=== PATIENT | male | born 1955 | race Caucasian/White ===

== ENCOUNTER 2016-11-29 08:57 | Day surgery (SDC) | payer BC ==
[~2016-11-29 08:57] MED LIST: ADVICOR 5001 BOTTLE; ASPIRIN325 MG; BAYER ASPIRIN325 MG PO; BYSTOLIC5 M1 PO; ECOTRIN325 M2 PO; ECOTRIN325 MG; FLONASE16 GM NS; LISINOPRIL10 MG; LORTAB 5/5001 EA PO; NIASPAN1000 MG PO; PRALUENT P75 MG/1 ML SC; PREDNISONE; PRINIVIL10 MG PO; PROSTATE HEALT1 EAC2 PO; RANEXA500 M1 PO; SIMCOR 500-21 BOTTLE; SIMCOR 500-21 BOTTLE PO; SIMVASTATIN80 MG PO; WAL-ZYR10 M1 PO; ZYRTEC10 MG PO
[2016-11-29 09:33] LABS: BASO % 0.3 % (0-2); EOS % 3.5 % (0-7); EOSINOPHIL ABSOLUTE COUNT 0.4 tho/cmm (0.0-0.7); HCT-HEMATOCRIT 42.6 % (36.0-53.5); HGB-HEMOGLOBIN 14.4 gm/dl (13.5-17.0); IMMATURE GRANULOCYTES ABSOLUTE 0.16 tho/cmm (0-0.03); IMMATURE GRANULOCYTES PERCENT 1.4 % (0-0.3); LYMPH % 21.6 % (20-45); LYMPH ABSOLUTE COUNT 2.5 tho/cmm (0.8-4.5); MCH (MEAN CORPUSCULAR HGB) 30.4 pg (28.0-32.0); MCHC MEAN CORPUSCULAR HGB CONC 33.8 % (32.0-36.0); MCV (MEAN CELL VOLUME) 89.9 fl (82.0-96.0); MEAN PLATELET VOLUME 9.1 cmc (9.4-12.4); MONO % 7.9 % (0-12); MONOCYTE ABSOLUTE COUNT 0.9 tho/cmm (0.0-1.2); NEUTROPHIL ABSOLUTE COUNT 7.7 tho/cmm (1.6-8.0); NEUTROPHIL-AUTOMATED 7.7 tho/cmm (1.6-8.0); NEUTROPHILS % 65.3 % (40-80); PLATELET COUNT 232 tho/cmm (150-450); RED BLOOD COUNT 4.74 mil/cmm (4.40-5.70); RED CELL DISTRIBUTION WIDTH 15.5 % (12.4-16.4); WHITE BLOOD COUNT 11.7 tho/cmm (4.0-10.0)
[2016-11-29 09:42] LABS: INR 1.1 INR (0.9-1.1)
== END 2016-11-29 14:30 ==
LOC: CTSCAN 08:57 → SHSB 08:58
PROVIDERS: Radiology Diagnostic Radiology
PROC: 0BBF3ZX Excision of Right Lower Lung Lobe, Percutaneous Approach, Diagnostic (ICD-10-PCS; principal; 2016-11-29)
DX: C34.31 Malignant neoplasm of lower lobe, right bronchus or lung (principal); I25.10 Atherosclerotic heart disease of native coronary artery without angina pectoris; E78.00 Pure hypercholesterolemia, unspecified; I10 Essential (primary) hypertension; E29.1 Testicular hypofunction; G47.33 Obstructive sleep apnea (adult) (pediatric); Z79.82 Long term (current) use of aspirin; Z79.899 Other long term (current) drug therapy; Z87.891 Personal history of nicotine dependence; Z90.49 Acquired absence of other specified parts of digestive tract; Z96.651 Presence of right artificial knee joint; Z98.890 Other specified postprocedural states
CPT/HCPCS: J2250; J3010; J7030

== ENCOUNTER 2016-12-14 06:15 | Day surgery (SDC) | payer BC ==
[2016-12-14 07:03] LABS: BASO % 0.4 % (0-2); EOS % 6.2 % (0-7); EOSINOPHIL ABSOLUTE COUNT 0.6 tho/cmm (0.0-0.7); HGB-HEMOGLOBIN 14.2 gm/dl (13.5-17.0); IMMATURE GRANULOCYTES ABSOLUTE 0.08 tho/cmm (0-0.03); IMMATURE GRANULOCYTES PERCENT 0.8 % (0-0.3); LYMPH % 22.2 % (20-45); LYMPH ABSOLUTE COUNT 2.1 tho/cmm (0.8-4.5); MCHC MEAN CORPUSCULAR HGB CONC 33.8 % (32.0-36.0); MCV (MEAN CELL VOLUME) 88.6 fl (82.0-96.0); MEAN PLATELET VOLUME 8.8 cmc (9.4-12.4); MONO % 8.8 % (0-12); MONOCYTE ABSOLUTE COUNT 0.8 tho/cmm (0.0-1.2); NEUTROPHIL ABSOLUTE COUNT 5.9 tho/cmm (1.6-8.0); NEUTROPHIL-AUTOMATED 5.9 tho/cmm (1.6-8.0); NEUTROPHILS % 61.6 % (40-80); PLATELET COUNT 283 tho/cmm (150-450); RED BLOOD COUNT 4.74 mil/cmm (4.40-5.70); RED CELL DISTRIBUTION WIDTH 14.9 % (12.4-16.4); WHITE BLOOD COUNT 9.6 tho/cmm (4.0-10.0)
== END 2016-12-14 10:30 ==
LOC: CTSCAN 06:15 → SHSB 06:19
PROVIDERS: Internal Medicine Pulmonary Disease
PROC: 0QB33ZX Excision of Left Pelvic Bone, Percutaneous Approach, Diagnostic (ICD-10-PCS; principal; 2016-12-14)
DX: C41.4 Malignant neoplasm of pelvic bones, sacrum and coccyx (principal); C34.91 Malignant neoplasm of unspecified part of right bronchus or lung; I25.10 Atherosclerotic heart disease of native coronary artery without angina pectoris; R05 Cough; R49.0 Dysphonia; I10 Essential (primary) hypertension; E78.5 Hyperlipidemia, unspecified; Z79.82 Long term (current) use of aspirin; Z79.899 Other long term (current) drug therapy; Z87.891 Personal history of nicotine dependence; Z96.651 Presence of right artificial knee joint; Z90.49 Acquired absence of other specified parts of digestive tract; Z95.5 Presence of coronary angioplasty implant and graft; Z98.52 Vasectomy status; Z98.890 Other specified postprocedural states
CPT/HCPCS: C1830; J2250; J3010; J7030